=== PATIENT | female | born 1945 | race African-American/Black ===

== ENCOUNTER 2018-05-24 14:15 | Inpatient (IN) | payer OTHER ==
--- NOTE | 2018-05-24 14:48 | PDOC ---
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 The patient is accompanied by her daughter who assists in providing the history. The patient reports that she tripped over an ironing board and fell onto her left knee 2 days ago with pain to the left knee. She states that she has had a knee replacement performed on that knee many years ago. She states that she had been unable to bend that knee or bear weight on the leg since the fall 2 days ago. The patient's daughter returned home and found her on the floor having been unable to get up over the past 2 days. The patient denies LOC, head trauma , other injuries and otherwise denies fevers, chills, SOB, chest pain, nausea, vomiting, abdominal pain, or changes with urination or bowel movements. Past History - Past Medical History Allergies/Adverse Reactions: Allergies Allergy/AdvReac Type Severity Reaction Status Date / Time No Known Allergies Allergy Verified 05/24/18 14:45 Home Medications: Ambulatory Orders Amlodipine Besylate [Norvasc -] mg PO DAILY 05/24/18 Levothyroxine [Synthroid -] mcg PO DAILY 05/24/18 Rivaroxaban [Xarelto -] 20 mg PO DAILY 05/24/18 - Suicide/Smoking/Psychosocial Hx Smoking History: Unknown if ever smoked Review of Systems - Review of Systems Comments:: 05/24/18 15:07 Constitutional: No fevers, chills, fatigue, malaise HEENT: No Rhinorrhea, nasal congestion, visual changes Cardiovascular: No chest pain, syncope, palpitations, lightheadedness Respiratory: No Cough, SOB, Hemoptysis, Gastrointestinal: No Abdominal pain, Nausea, Vomiting, Constipation, Diarrhea, Melena Genitourinary: No Dysuria, Frequency, Urgency, Hesitancy, Hematuria, Flank pain Musculoskeletal: Left knee pain. No Myalgia, arthralgia Skin: Left knee bruising. No rashes, itching, pallor Neurologic: No Headache, Dizziness, Numbness, Weakness, or Tingling Psychiatric: No Hallucinations. No SI or HI *Physical Exam - Vital Signs Last Vital Signs Temp Pulse Resp BP Pulse Ox 98.2 F 102 H 18 113/70 97 05/24/18 14:46 05/24/18 14:46 05/24/18 14:46 05/24/18 14:46 05/24/18 14:46 - Physical Exam Comments: 05/24/18 15:07 General Appearance: Nourished. No Apparent Distress HEENT: EOMI, GIANFRANCO. No Pharyngeal Erythema, Tonsillar Exudate, Tonsillar Erythema Neck: No Cervical Lymphadenopathy Respiratory/Chest: Lungs Clear, Normal Breath Sounds. No Crackles, Rales, Rhonchi, Wheezing Cardiovascular: Regular Rhythm, Regular Rate. No Murmur, Gallops, Rubs Gastrointestinal/Abdominal: Normal Bowel Sounds, Soft. No Guarding, Rebound, Tenderness Musculoskeletal: No CVA Tenderness Extremity: Bruising noted over the left patella with limited ROM secondary to pain. No pain with log roll. Left leg is shortened and eternally rotated. Sensation to light touch and temp intact distally. 2+ dp pulses bilaterally. Normal Capillary Refill Integumentary: Normal Color, Dry, Warm Neurologic: utility sales representative II-XII NML intact, Fully Oriented, Alert, Normal Mood/Affect, Normal Response, Moderate Sedation - Procedure Monitoring Vital Signs: Procedure Monitoring Vital Signs Temperature 98.2 F 05/24/18 14:46 Pulse Rate 102 H 05/24/18 14:46 Respiratory Rate 18 05/24/18 14:46 Blood Pressure 113/70 05/24/18 14:46 O2 Sat by Pulse Oximetry (%) 97 05/24/18 14:46 ED Treatment Course - LABORATORY CBC & Chemistry Diagram: 05/24/18 15:11 05/24/18 15:11 Medical Decision Making - Medical Decision Making 05/24/18 15:09 The patient is a 72 year old female with a history of HTN, Hypothyroid, 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 Differential includes but is not limited to: Fracture, dislocation, contusion, ligamentous injury. Given the patient's history and physical exam, we will obtain a cbc, cmp, coags, cpk, plain films of the left hip and knee to evaluate further. We will treat with tylenol and continue to monitor and reassess while here in the ED. 05/24/18 18:06 CBC, cmp, caogs are unremarkable. CPK is elevated to 1500s. Plain films demonstrate a distal markedly displaced left femur fracture. We treated the patient with morphine and iv fluids. We discussed the case with Dr. Solitario with Orthopedics who is aware of the case and recommends CT imaging for further evaluation prior to surgical intervention. We will obtain a lower extremity CT to evaluate further and the patient will require admission for further management. *DC/Admit/Observation/Transfer Diagnosis at time of Disposition: Femur fracture, left Qualifiers: Encounter type: initial encounter Femur location: unspecified portion of femur Fracture type: closed Fracture morphology: unspecified fracture morphology Qualified Code(s): S72.92XA - Unspecified fracture of left femur, initial encounter for closed fracture - Discharge Dispostion Condition at time of disposition: Stable Decision to Admit order: Yes - Referrals Referrals: ON STAFF,NOT [Primary Care Provider] - - Patient Instructions - Post Discharge Activity
[2018-05-24 14:49] VITALS: BMI 27.8
[2018-05-24] MEDS ORDERED: ACETAMINOPHEN 500 MG TABLET (FP) PO ONE (15:00)
--- NOTE | 2018-05-24 15:18 | PDOC ---
Attending Attestation - HPI HPI: 05/24/18 18:52 The patient is a 72 year old female with a significant past medical history of hypertension, hypothyroid , DVT/PE (on xarelto), and stage anal ca (remission) who presents to the emergency department with a left knee injury since 3 days ago. The patient reports that she was at home 2 days ago when she tripped and fell over an ironing board in her room. The patient reports that she fell to her knees and and was unable to get up. She states that she was on the floor for 2 days until her daughter came by this morning and brought her to the ED. The patient's daughter states that when she saw her mother she was seated on her bottom. The patient denies eating, drinking or using the restroom for the past 2 days. The patient reports some associates left knee pain and swelling as well as left hip pain. The patient states that she had bilateral hip replacement in the past as well as left knee replacement. The patient denies any chest pain, shortness of breath, headache, loc, dizziness, lightheadedness or head trauma. She denies any fever, chills, nausea, vomiting, diarrhea, constipation or urinary symptoms. The patient denies any other complaints. Documentation prepared by Jose Alfredo Arzola, acting as medical assisting program director for Brian Araiza MD. <Jose Alfredo Arzola - Last Filed: 05/24/18 18:52> - Resident Resident Name: Chuy Harris - ED Attending Attestation I have performed the following: I have examined & evaluated the patient, The case was reviewed & discussed with the resident, I agree w/resident's findings & plan, Exceptions are as noted - Physicial Exam PE: 05/24/18 15:38 GENERAL: The patient is awake, alert, and fully oriented, Nontoxic - in no acute distress. HEAD: Normocephalic, atraumatic. EYES: extraocular movements intact, sclera anicteric, conjunctiva clear. ENT: Normal voice, Moist mucous membranes. NECK: Normal range of motion, supple,no focal midline tenderness in cervical/ thoracic/lumbar spine, no paraspinal tenderness LUNGS: Breath sounds equal, clear to auscultation bilaterally. No wheezes, no rhonchi, no rales. HEART: Regular rate and rhythm, normal S1 and S2 without murmur, rub or gallop. ABDOMEN: Soft, nontender, normoactive bowel sounds. No guarding, no rebound. . No CVA tenderness EXTREMITIES: Normal range of motion of b/l UE, RLE, +ttp with passive ROM on L hip/femur, +diffusely swollen, ecchymotic R knee, no pain on log roll of L leg, unable to actively or passively flex/extend L knee to pain, sensation intact distally, DP pulses symmetric NEUROLOGICAL: No facial assymetry, Normal speech, moving all 4 extremities spontaneously and symmetrically (L leg limited by pain) PSYCH: Normal mood, normal affect. SKIN: Warm, Dry, normal turgor, - Medical Decision Making 05/24/18 15:12 72y F hx htn, hypothryoidism, PE on xerolto presents with L knee pain. Fell after tripping on a ironing board, unable to get up for 2 days due to the pain. she densi any head injury, loc, headache, n/v, numbnestingling/weakness, cp, sob , palpitations on exam pt has diffuse swelling of L knee pain on L hip/femur will ck labs, cpk fluids for hydration xray of knee/hip/femur tylenol for pain will reassess 05/24/18 16:53 xray cw femur fx will dw ortho labs reviewed - no signs of anemia. ck elevated 05/24/18 19:53 pts daughter rquests transfer. discussed with [facility] by resident Warner - accepted for transfer by ortho <Brian Araiza - Last Filed: 06/02/18 07:42> Heart Score/ECG Review - ECG Impressions Comment:: 05/24/18 17:52 Twelve-lead EKG was performed and reviewed by me. There is normal sinus rhythm with a normal rate. Rate [address] changes suggestive of acute ischemia <Brian Araiza - Last Filed: 06/02/18 07:42>
[2018-05-24 15:40] LABS: BASO % 0.6 % (0-2.0); EOS % 0.2 % (0-4.5); HEMATOCRIT 33.8 % (32.4-45.2); HEMOGLOBIN 11.8 GM/dL (10.7-15.3); LYMPH % 5.3 % (8-40); MCH 33.7 pg (25.7-33.7); MCHC 34.9 g/dl (32.0-36.0); MEAN CELL VOLUME 96.6 fl (80-96); MEAN PLT VOLUME 7.9 fl (7.5-11.1); MONO % 11.9 % (3.8-10.2); PLATELET COUNT 357 K/MM3 (134-434); RDW 14.5 % (11.6-15.6)
[2018-05-24 16:03] LABS: INR 1.08 (0.83-1.09); PROTHROMBIN TIME (PATIENT) 12.7 SEC (9.7-13.0)
[2018-05-24 16:06] LABS: ACTIVATED PTT 27.4 SECONDS (25.2-36.5)
[2018-05-24 16:16] LABS: ALBUMIN 3.4 g/dl (3.4-5.0); ALK PHOS 50 U/L (45-117); ANION GAP 5 MMOL/L (8-16); BILIRUBIN,TOTAL 0.7 mg/dL (0.2-1); BLOOD UREA NITROGEN 22 mg/dL (7-18); CALCIUM 9.5 mg/dL (8.5-10.1); CHLORIDE 107 mmol/L (98-107); CO2 27 mmol/L (21-32); CREATININE 0.9 mg/dL (0.55-1.3); GLUCOSE,RANDOM 131 mg/dL (74-106); POTASSIUM 4.5 mmol/L (3.5-5.1); SGOT/AST 40 U/L (15-37); SGPT/ALT 20 U/L (13-61); SODIUM 139 mmol/L (136-145); TOT PROT 6.8 g/dl (6.4-8.2)
[2018-05-24] MEDS ORDERED: SODIUM CHLORIDE 1,000 ML IV STA (16:22)
[2018-05-24] MEDS ORDERED: morphine CARPU-JECT 4 MG/1 ML DISP.SYRIN IVPUSH ONE ×2 (16:22→21:03)
[2018-05-24 17:37] LABS: URINE APPEARANCE CLEAR; URINE BILIRUBIN NEGATIVE (<2.0 mg/dL); URINE COLOR YELLOW; URINE GLUCOSE (UA) NEGATIVE (NEGATIVE); URINE KETONE TRACE (NEGATIVE); URINE LEUK ESTERASE NEGATIVE (NEGATIVE); URINE NITRITE NEGATIVE (NEGATIVE); URINE PROTEIN 1+ (NEGATIVE); URINE UROBILINOGEN NEGATIVE mg/dL (0.2-1.0)
[2018-05-24 17:41] LABS: URINE MUCUS RARE
--- NOTE | 2018-05-24 18:05 | CONSULT ---
Consult - History of Present Illness Chief Complaint: left leg pain History of Present Illness: 72y/o female with hx of left TKA and JOHN presents with pain in her left lower extremity s/p a fall two days ago at home. She was found by her family member and transported to the ED where she had x-rays and was found to have a fracture. She has pain which is worse with movement of the extremity and better with rest. She is on xaraleto but has not taken in the past 2 days. - History Source History Provided By: Patient, Medical Record - Smoking History Smoking history: Unknown if ever smoked Home Medications - Allergies Allergies/Adverse Reactions: Allergies Allergy/AdvReac Type Severity Reaction Status Date / Time No Known Allergies Allergy Verified 05/24/18 14:45 - Home Medications Home Medications: Ambulatory Orders Amlodipine Besylate [Norvasc -] mg PO DAILY 05/24/18 Levothyroxine [Synthroid -] mcg PO DAILY 05/24/18 Rivaroxaban [Xarelto -] 20 mg PO DAILY 05/24/18 Review of Systems - Review of Systems Constitutional: reports: No Symptoms Eyes: reports: No Symptoms HENT: reports: No Symptoms Neck: reports: No Symptoms Cardiovascular: reports: No Symptoms Respiratory: reports: No Symptoms Gastrointestinal: reports: No Symptoms Genitourinary: reports: No Symptoms Breasts: reports: No Symptoms Reported Musculoskeletal: reports: Extremity Pain Integumentary: reports: No Symptoms Neurological: reports: No Symptoms Endocrine: reports: No Symptoms Hematology/Lymphatic: reports: No Symptoms Psychiatric: reports: No Symptoms Physical Exam Vital Signs: Vital Signs Temperature 98.2 F 05/24/18 17:47 Pulse Rate 92 H 05/24/18 17:47 Respiratory Rate 18 05/24/18 17:47 Blood Pressure 125/74 05/24/18 17:47 O2 Sat by Pulse Oximetry (%) 98 05/24/18 17:47 Labs: CBC, BMP 05/24/18 15:11 05/24/18 15:11 Imaging - Results X-ray: Report Reviewed, Image Reviewed (left knee/hip: Displaced spiral fx of the midshaft/distal femur) Assessment/Plan #1 Left femur shaft fracture Discussed today's findings and treatment options with the patient. I have recommended ORIF and they would like to proceed. Case discussed with Dr. Solitario. Pain is for ORIF tomorrow afternoon/evening. -Hold Xarelto -Pain control -Knee immobizer placed for comfort
--- NOTE | 2018-05-24 19:40 | PDOC ---
*Physical Exam - Vital Signs Last Vital Signs Temp Pulse Resp BP Pulse Ox 98.2 F 92 H 18 125/74 98 05/24/18 17:47 05/24/18 17:47 05/24/18 17:47 05/24/18 17:47 05/24/18 17:47 05/24/18 19:50 I assumed Ms. Fontaine's care at the beginning of my shift. Patient has periprosthetic spiral distal 1/3 femur fracture, ED Treatment Course - LABORATORY CBC & Chemistry Diagram: 05/24/18 15:11 05/24/18 15:11 - ADDITIONAL ORDERS Additional order review: Laboratory Results 05/24/18 05/24/18 05/24/18 17:20 15:11 15:11 PT with INR INR PTT (Actin FS) Sodium 139 Potassium 4.5 Chloride 107 Carbon Dioxide 27 Anion Gap 5 L BUN 22 H Creatinine 0.9 Creat Clearance w eGFR > 60 Random Glucose 131 H Calcium 9.5 Total Bilirubin 0.7 AST 40 H ALT 20 Alkaline Phosphatase 50 Creatine Kinase 1503 H Creatine Kinase Index 0.3 CK-MB (CK-2) 5.2 H Total Protein 6.8 Albumin 3.4 Urine Color Yellow Urine Appearance Clear Urine pH 5.0 Ur Specific [place] 1.028 Urine Protein 1+ H Urine Glucose (UA) Negative Urine Ketones Trace H Urine Blood Negative Urine Nitrite Negative Urine Bilirubin Negative Urine Urobilinogen Negative Ur Leukocyte Esterase Negative Urine WBC (Auto) <1 Urine RBC (Auto) None Urine Mucus Rare Blood Type AB POSITIVE Antibody Screen Negative 05/24/18 15:11 PT with INR 12.70 INR 1.08 PTT (Actin FS) 27.4 Sodium Potassium Chloride Carbon Dioxide Anion Gap BUN Creatinine Creat Clearance w eGFR Random Glucose Calcium Total Bilirubin AST ALT Alkaline Phosphatase Creatine Kinase Creatine Kinase Index CK-MB (CK-2) Total Protein Albumin Urine Color Urine Appearance Urine pH Ur Specific [place] Urine Protein Urine Glucose (UA) Urine Ketones Urine Blood Urine Nitrite Urine Bilirubin Urine Urobilinogen Ur Leukocyte Esterase Urine WBC (Auto) Urine RBC (Auto) Urine Mucus Blood Type Antibody Screen 05/24/18 15:11 RBC 3.50 L MCV 96.6 H MCHC 34.9 RDW 14.5 MPV 7.9 Neutrophils % 82.0 Lymphocytes % 5.3 L Monocytes % 11.9 H Eosinophils % 0.2 Basophils % 0.6 - Medications Given in the ED: ED Medications Discontinued Medications Generic Name Dose Route Start Last Admin Trade Name Leonel PRN Reason Stop Dose Admin Acetaminophen 975 mg 05/24/18 15:00 05/24/18 15:32 Tylenol - PO 05/24/18 15:01 975 mg ONCE ONE Administration Sodium Chloride 1,000 mls @ 1,000 mls/hr 05/24/18 16:22 05/24/18 17:10 Normal Saline - IV 05/24/18 17:21 1,000 mls/hr ASDIR STA Administration Morphine Sulfate 4 mg 05/24/18 16:22 05/24/18 17:10 Morphine Injection - IVPUSH 05/24/18 16:23 4 mg ONCE ONE Administration Medical Decision Making - Medical Decision Making 05/24/18 19:45 I spoke with [facility], spoke with ED and Ortho Surgery attendings , patient accepted. Ortho surgery on-call attending is Arie Mancilla. I spoke with the family and patient regarding updated plan. 05/24/18 20:01 I spoke with ZACH Montemayor with orthopedics dept, he will let Dr. Solitario know about plan change. Patient and daughter informed and consent to transfer. Transfer paperwork completed and signed by all indicated parties. CD of imaging made and included in packet. EMS crew arrives and transfers Pt to ambulance without issue. *DC/Admit/Observation/Transfer Diagnosis at time of Disposition: Femur fracture, left Qualifiers: Encounter type: initial encounter Femur location: unspecified portion of femur Fracture type: closed Fracture morphology: unspecified fracture morphology Qualified Code(s): S72.92XA - Unspecified fracture of left femur, initial encounter for closed fracture - Discharge Dispostion Condition at time of disposition: Stable - Referrals Referrals: ON STAFF,NOT [Primary Care Provider] - - Patient Instructions - Post Discharge Activity - Transfer to Acute Care Facility Accepting Physician:: li
[2018-05-24] MEDS ORDERED: morphine SULFATE 4 MG/ML VIAL ONE (21:03)
[2018-05-24 23:21] VITALS: BP 121/76; PULSE 86; TEMP 98.7
--- NOTE | 2018-05-25 11:13 | EKG ---
Test Reason : Blood Pressure : / mmHG Vent. Rate : 092 BPM Atrial Rate : 092 BPM P-R Int : 164 ms QRS Dur : 088 ms QT Int : 378 ms P-R-T Axes : 029 013 046 degrees QTc Int : 467 ms NORMAL SINUS RHYTHM MINIMAL VOLTAGE CRITERIA FOR LVH, MAY BE NORMAL VARIANT BORDERLINE ECG NO PREVIOUS ECGS AVAILABLE Confirmed by BECKA SEYMOUR, DEBRA ([id number]) on 05/25/2018 11:13:37 AM Referred By: Confirmed By:DEBRA JOVEL MD
== END 2018-05-24 23:15 | disposition short-term general hospital (02) | DRG 534 ==
LOC: JER 14:15 → JERBED 18:28
PROVIDERS: ADMIT Internal Medicine; ATTEND Internal Medicine
DX: S72.92XA Unspecified fracture of left femur, initial encounter for closed fracture (principal); W19.XXXA Unspecified fall, initial encounter; Y93.9 Activity, unspecified; Y92.099 Unspecified place in other non-institutional residence as the place of occurrence of the external cause; Y99.9 Unspecified external cause status; I10 Essential (primary) hypertension; E03.9 Hypothyroidism, unspecified
CPT/HCPCS: 36415; 71045-TC-FY; 73523-TC-FY; 73562-TC-LT-FY; 73700-TC-RT; 80053; 81003; 81015; 82550; 82553; 85025; 85610; 85730; 86850; 86900; 86901; 87086; 93005; 93010; 99285-25; J7030

== ENCOUNTER 2020-02-16 04:57 | Day surgery (SDC) | payer OTHER ==
[2020-02-14 16:01] VITALS: BMI 31.9
[2020-02-16] MEDS ORDERED: BUPIVACAINE HCL/PF 0.25% (2.5MG/ML) 10 ML VIAL ONE (07:20)
[2020-02-16] MEDS ORDERED: BUPIVACAINE HCL/PF 0.75% 10 ML VIAL ONE (07:20)
[2020-02-16] MEDS ORDERED: DEXAMETHASONE SOD PHOSPHATE/PF 10 MG/ML SDV ONE (07:21)
[2020-02-16] MEDS ORDERED: IOHEXOL 180 MG/1 ML ML IJ ONE ×2 (09:54)
[2020-02-16] MEDS ORDERED: TRIAMCINOLONE ACET 40MG/1ML VIAL IM ONE (09:54)
[2020-02-16] MEDS ORDERED: LIDOCAINE HCL 1% PRESERVATIVE FREE - 30ML VIAL IJ ONE (09:54)
[2020-02-16] MEDS ORDERED: BUPIVACAINE HCL/PF 0.5% (5 MG/ML) 30 ML VIAL IJ ONE (09:54)
[2020-02-16 10:24] VITALS: TEMP 98
[2020-02-16 13:45] VITALS: BP 129/70; PULSE 80
--- NOTE | 2020-02-20 12:42 | PROC ---
Procedure Note Procedure: Pre procedure Diagnosis: Sacroiliac Joint Dysfunction Post Procedure Diagnosis: same Anesthesia: local Procedure Performed: Right Sacroiliac Joint Injection Under Fluoroscopic Guidance After the risks and benefits were explained, informed consent was obtained. The patient was then taken to the procedure room and positioned prone on the procedure table. Time out was performed. The region overlying the right sacroiliac joint was identified using fluoroscopy. The skin was prepped and draped in the usual sterile fashion. The skin and soft tissues were anesthetized using 2% lidocaine. Using fluoroscopic guidance, a 22 gauge 3.5 inch spinal needle was then introduced to the inferior aspect of the posterior Right sacroiliac joint. Omnipaque 180 confirmed appropriate needle placement. 1 cc .5% bupivacaine and 1 cc Kenalog was then injected. The patient tolerated the procedure well and there were no complications. The patient was taken to the post procedure recovery area in good condition. Vital signs remained stable before, during, and after the procedure. The patient was given oral and written follow-up instructions. The patient was given a follow up appointment with me in the near future. Jaime Renee DO
== END 2020-02-16 10:45 | disposition home or self-care (01) ==
LOC: JASU-SURG 04:57
PROVIDERS: ATTEND Pain Medicine Pain Medicine
PROC: 3E0U3BZ Introduction of Anesthetic Agent into Joints, Percutaneous Approach (ICD-10-PCS; 2020-02-16)
PROC: 3E0U33Z Introduction of Anti-inflammatory into Joints, Percutaneous Approach (ICD-10-PCS; principal; 2020-02-16 10:30)
DX: M53.3 Sacrococcygeal disorders, not elsewhere classified (principal); M54.5 Low back pain
CPT/HCPCS: 76000-TC-FY

== ENCOUNTER 2020-05-03 05:00 | Day surgery (SDC) | payer OTHER ==
[2020-05-02 12:24] VITALS: BMI 31.6
[~2020-05-03 05:00] MED LIST: DEXAMETHASONE SOD PHOSPHATE 10 MG/1 ML VIAL IVPUSH ONE; IOHEXOL 180 MG/1 ML ML IJ ONE; LIDOCAINE HCL 1% PRESERVATIVE FREE - 30ML VIAL IJ ONE
[2020-05-03] MEDS ORDERED: LIDOCAINE HCL/PF 1% SDV 5ML VIAL ONE (07:29)
[2020-05-03] MEDS ORDERED: IOHEXOL 180 MG/1 ML ML IJ ONE (11:58)
[2020-05-03] MEDS ORDERED: DEXAMETHASONE SOD PHOSPHATE 10 MG/1 ML VIAL IVPUSH ONE (11:58)
[2020-05-03] MEDS ORDERED: LIDOCAINE HCL 1% PRESERVATIVE FREE - 30ML VIAL IJ ONE (11:58)
[2020-05-03 12:42] VITALS: TEMP 97
[2020-05-03 15:44] VITALS: BP 140/70; PULSE 80
== END 2020-05-03 13:30 | disposition home or self-care (01) ==
LOC: JASU-SURG 05:00
PROVIDERS: ATTEND Pain Medicine Pain Medicine
PROC: 3E0R3BZ Introduction of Anesthetic Agent into Spinal Canal, Percutaneous Approach (ICD-10-PCS; 2020-05-03)
PROC: B01BYZZ Fluoroscopy of Spinal Cord using Other Contrast (ICD-10-PCS; 2020-05-03)
PROC: 3E0R33Z Introduction of Anti-inflammatory into Spinal Canal, Percutaneous Approach (ICD-10-PCS; principal; 2020-05-03 11:30)
DX: M54.16 Radiculopathy, lumbar region (principal)
CPT/HCPCS: J1100

== ENCOUNTER 2020-10-14 18:08 | Inpatient (IN) | payer OTHER ==
[2020-10-14 20:31] LABS: BASO % 0.5 % (0-2.0); EOS % 2.7 % (0-4.5); HEMATOCRIT 43.9 % (32.4-45.2); HEMOGLOBIN 15.1 GM/dL (10.7-15.3); LYMPH % 9.5 % (8-40); MCHC 34.3 g/dl (32.0-36.0); MEAN CELL VOLUME 96.1 fl (80-96); MEAN PLT VOLUME 9.3 fl (7.5-11.1); MONO % 8.9 % (3.8-10.2); NEUT % 78.4 % (42.8-82.8); PLATELET COUNT 295 K/MM3 (134-434); RBC 4.56 M/mm3 (3.60-5.2); RDW 14.1 % (11.6-15.6); WHITE BLOOD COUNT 7.7 K/mm3 (4.0-10.0)
[2020-10-14 20:38] LABS: CHLORIDE 104 mmol/L (98-107); SODIUM 139 mmol/L (136-145)
[2020-10-14 20:40] LABS: ALBUMIN 3.4 g/dl (3.4-5.0); CALCIUM 9.3 mg/dL (8.5-10.1)
[2020-10-14 20:41] LABS: ANION GAP 10 MMOL/L (8-16); BLOOD UREA NITROGEN 9.8 mg/dL (7-18); CO2 25 mmol/L (21-32); GLUCOSE,RANDOM 114 mg/dL (74-106)
[2020-10-14 20:44] LABS: CREATININE 0.9 mg/dL (0.55-1.3); SGOT/AST 124 U/L (15-37); SGPT/ALT 58 U/L (13-61)
[2020-10-14 20:45] LABS: BILIRUBIN,TOTAL 0.9 mg/dL (0.2-1); TOT PROT 7.2 g/dl (6.4-8.2)
[2020-10-14 20:46] LABS: ALK PHOS 84 U/L (45-117)
[2020-10-14 20:49] LABS: N-TERMINAL BNP 28.8 pg/ml (5-125)
[2020-10-14 21:11] LABS: INR 1.56 (0.83-1.09); PROTHROMBIN TIME (PATIENT) 18.6 SEC (9.7-13.0)
[2020-10-14 21:14] LABS: ACTIVATED PTT 33.8 SECONDS (25.2-36.5)
[2020-10-14] MEDS ORDERED: CEFTRIAXONE 1,000 MG in DEXTROSE 5%-WATER - 50 ML IVPB ONE (23:54)
[2020-10-14] MEDS ORDERED: AZITHROMYCIN IVPB 500 MG in DEXTROSE 5%-WATER - 250 ML IVPB ONE (23:56)
[2020-10-15] MEDS ORDERED: CEFTRIAXONE 1 GM/50 ML BAG ONE (00:42)
[2020-10-15] MEDS ORDERED: AZITHROMYCIN IVPB 500 MG/250 ML BAG IVPB ONE (01:43)
[2020-10-15 04:48] LABS: CALCIUM 9.1 mg/dL (8.5-10.1)
[2020-10-15 04:52] LABS: CREATININE 0.9 mg/dL (0.55-1.3)
[2020-10-15] MEDS: GABAPENTIN 100 MG CAPSULE PO SCH ×3 (06:50→21:35)
[2020-10-15 08:01] VITALS: BMI 29.4
[2020-10-15] MEDS ORDERED: POTASSIUM CHLORIDE TABS 20 MEQ TABLET.ER (FP) PO ONE (09:23)
[2020-10-15] MEDS ORDERED: cefTRIAXone SODIUM 1 GM VIAL ONE (10:37)
[2020-10-15] MEDS ORDERED: DEXTROSE 5%-WATER - 50 ML IVPB ONE (10:40)
[2020-10-15] MEDS: AZITHROMYCIN 500 MG TABLET PO SCH (10:46)
[2020-10-15] MEDS: amLODIPine BESYLATE 5 MG TABLET (FP) PO SCH (10:47)
[2020-10-15] MEDS: CEFTRIAXONE 1 GM in DEXTROSE 5%-WATER - 50 ML IVPB SCH (10:47)
[2020-10-15] MEDS: RIVAROXABAN 20 MG TABLET PO SCH (18:02)
[2020-10-16] MEDS: GABAPENTIN 100 MG CAPSULE PO SCH ×3 (06:25→21:23)
[2020-10-16] MEDS ORDERED: LEVOTHYROXINE NA 50 MCG TABLET (FP) PO SCH ×2 (07:00→11:51)
[2020-10-16 08:29] LABS: BASO % 2.6 % (0-2.0); EOS % 10.4 % (0-4.5); HEMATOCRIT 36.5 % (32.4-45.2); HEMOGLOBIN 12.6 GM/dL (10.7-15.3); LYMPH % 12.3 % (8-40); MCH 33.2 pg (25.7-33.7); MCHC 34.5 g/dl (32.0-36.0); MEAN CELL VOLUME 96.1 fl (80-96); MONO % 17.3 % (3.8-10.2); NEUT % 57.4 % (42.8-82.8); PLATELET COUNT 245 K/MM3 (134-434); RDW 13.7 % (11.6-15.6); WHITE BLOOD COUNT 3.5 K/mm3 (4.0-10.0)
[2020-10-16 08:46] LABS: CALCIUM 8.9 mg/dL (8.5-10.1)
[2020-10-16 08:47] LABS: ALBUMIN 2.7 g/dl (3.4-5.0); BLOOD UREA NITROGEN 8.3 mg/dL (7-18); MAGNESIUM 1.8 mg/dL (1.8-2.4)
[2020-10-16 08:50] LABS: CREATININE 0.7 mg/dL (0.55-1.3)
[2020-10-16 08:51] LABS: BILIRUBIN,TOTAL 0.8 mg/dL (0.2-1); TOT PROT 5.6 g/dl (6.4-8.2)
[2020-10-16] MEDS ORDERED: cefTRIAXone SODIUM 1 GM VIAL ONE (09:24)
[2020-10-16] MEDS ORDERED: DEXTROSE 5%-WATER - 50 ML IVPB ONE (09:24)
[2020-10-16] MEDS: CEFTRIAXONE 1 GM in DEXTROSE 5%-WATER - 50 ML IVPB SCH (09:35)
[2020-10-16] MEDS: AZITHROMYCIN 500 MG TABLET PO SCH (09:35)
[2020-10-16] MEDS: amLODIPine BESYLATE 5 MG TABLET (FP) PO SCH (09:36)
[2020-10-16] MEDS: RIVAROXABAN 20 MG TABLET PO SCH (17:15)
[2020-10-17] MEDS: GABAPENTIN 100 MG CAPSULE PO SCH ×3 (06:20→21:25)
[2020-10-17] MEDS: LEVOTHYROXINE NA 50 MCG TABLET (FP) PO SCH (06:20)
[2020-10-17] MEDS ORDERED: cefTRIAXone SODIUM 1 GM VIAL ONE (10:11)
[2020-10-17] MEDS ORDERED: DEXTROSE 5%-WATER - 50 ML IVPB ONE (10:12)
[2020-10-17] MEDS: CEFTRIAXONE 1 GM in DEXTROSE 5%-WATER - 50 ML IVPB SCH (11:09)
[2020-10-17] MEDS: amLODIPine BESYLATE 5 MG TABLET (FP) PO SCH (11:09)
[2020-10-17] MEDS: AZITHROMYCIN 500 MG TABLET PO SCH (11:30)
[2020-10-17] MEDS: methylPREDNISolone NA SUCC 40 MG/1 ML VIAL IVPUSH SCH ×2 (11:43→17:12)
[2020-10-17] MEDS ORDERED: ACETAMINOPHEN 325 MG TABLET (FP) PO PRN (13:41)
[2020-10-17] MEDS: RIVAROXABAN 20 MG TABLET PO SCH (17:14)
[2020-10-17] MEDS ORDERED: IBUPROFEN 200 MG TABLET PO ONE (23:53)
[2020-10-18] MEDS: methylPREDNISolone NA SUCC 40 MG/1 ML VIAL IVPUSH SCH ×2 (01:28→09:36)
[2020-10-18] MEDS: GABAPENTIN 100 MG CAPSULE PO SCH ×2 (05:38→14:15)
[2020-10-18] MEDS: LEVOTHYROXINE NA 50 MCG TABLET (FP) PO SCH (06:34)
[2020-10-18 08:18] LABS: BASO % 0.6 % (0-2.0); EOS % 0.1 % (0-4.5); HEMATOCRIT 39.8 % (32.4-45.2); HEMOGLOBIN 13.4 GM/dL (10.7-15.3); LYMPH % 4.7 % (8-40); MCH 32.6 pg (25.7-33.7); MCHC 33.8 g/dl (32.0-36.0); MEAN CELL VOLUME 96.5 fl (80-96); MEAN PLT VOLUME 9.2 fl (7.5-11.1); NEUT % 92.6 % (42.8-82.8); PLATELET COUNT 279 K/MM3 (134-434); RBC 4.12 M/mm3 (3.60-5.2); RDW 13.6 % (11.6-15.6); WHITE BLOOD COUNT 7.1 K/mm3 (4.0-10.0)
[2020-10-18 08:38] LABS: BLOOD UREA NITROGEN 11.5 mg/dL (7-18); CALCIUM 9.8 mg/dL (8.5-10.1)
[2020-10-18 08:40] LABS: CREATININE 0.8 mg/dL (0.55-1.3)
[2020-10-18] MEDS ORDERED: cefTRIAXone SODIUM 1 GM VIAL ONE (09:26)
[2020-10-18] MEDS ORDERED: DEXTROSE 5%-WATER - 50 ML IVPB ONE (09:28)
[2020-10-18] MEDS: amLODIPine BESYLATE 5 MG TABLET (FP) PO SCH (09:36)
[2020-10-18] MEDS: CEFTRIAXONE 1 GM in DEXTROSE 5%-WATER - 50 ML IVPB SCH (09:36)
[2020-10-18 10:42] VITALS: TEMP 97.7
[2020-10-18 10:50] LABS: ANISOCYTOSIS 0; MACROCYTOSIS 0; PLATELET ESTIMATE NORMAL
[2020-10-18 16:06] VITALS: BP 125/77; PULSE 82
[2020-10-19] MEDS ORDERED: predniSONE 20 MG TABLET (UD) PO SCH (10:00)
== END 2020-10-18 17:17 | disposition home or self-care (01) | DRG 205 ==
LOC: JER 18:08 → JERBED 10-15 00:28 → J6S 10-15 06:43
PROVIDERS: ADMIT Internal Medicine; ATTEND Internal Medicine
DX: J70.2 Acute drug-induced interstitial lung disorders (principal); J96.01 Acute respiratory failure with hypoxia; C21.0 Malignant neoplasm of anus, unspecified; C78.00 Secondary malignant neoplasm of unspecified lung; I10 Essential (primary) hypertension; E03.9 Hypothyroidism, unspecified; E03.2 Hypothyroidism due to medicaments and other exogenous substances; T50.995A Adverse effect of other drugs, medicaments and biological substances, initial encounter
CPT/HCPCS: 36415; 71045-TC-FY; 71275-TC; 80048; 80053; 82550; 82553; 82728; 83735; 83880; 84439; 84443; 84484; 85025; 85379; 85610; 85730; 86140; 86769; 87804; 87899; 93005; 93010; 94010; 94761; 99285-25; C9803; U0003; U0005

== ENCOUNTER 2021-03-14 04:17 | Day surgery (SDC) | payer OTHER ==
[2021-03-12 13:17] VITALS: BMI 27.3
[2021-03-14] MEDS ORDERED: DEXAMETHASONE SOD PHOSPHATE 10 MG/1 ML VIAL ONE (07:11)
[2021-03-14] MEDS ORDERED: LIDOCAINE HCL/PF 1% SDV 5ML VIAL ONE (07:14)
[2021-03-14] MEDS ORDERED: LIDOCAINE HCL 1% PRESERVATIVE FREE - 30ML VIAL IJ ONE (13:47)
[2021-03-14] MEDS ORDERED: DEXAMETHASONE SOD PHOSPHATE 10 MG/1 ML VIAL IVPUSH ONE ×2 (13:47→14:03)
[2021-03-14] MEDS ORDERED: IOHEXOL 180 MG/1 ML ML IJ ONE (13:48)
[2021-03-14 14:49] VITALS: BP 101/56; PULSE 74; TEMP 97.7
== END 2021-03-14 15:00 | disposition home or self-care (01) ==
LOC: JASU-SURG 04:17
PROVIDERS: ATTEND Pain Medicine Pain Medicine
PROC: 3E0R33Z Introduction of Anti-inflammatory into Spinal Canal, Percutaneous Approach (ICD-10-PCS; 2021-03-14)
PROC: B01BYZZ Fluoroscopy of Spinal Cord using Other Contrast (ICD-10-PCS; 2021-03-14)
PROC: 3E0R3BZ Introduction of Anesthetic Agent into Spinal Canal, Percutaneous Approach (ICD-10-PCS; principal; 2021-03-14 08:30)
DX: M54.16 Radiculopathy, lumbar region (principal)
CPT/HCPCS: 76000-TC-FY; J1100

== ENCOUNTER 2021-08-29 10:43 | Inpatient (IN) | payer OTHER ==
[2021-08-29] MEDS ORDERED: SODIUM CHLORIDE 0.9% 500 ML INFUS.BAG IV ONE (11:29)
[2021-08-29] MEDS ORDERED: ACETAMINOPHEN 1000 MG/100 ML BAG IVPB ONE (11:29)
[2021-08-29] MEDS ORDERED: ACETAMINOPHEN INJECTION 100 ML IVPB ONE (11:44)
[2021-08-29 12:18] LABS: BASO % 0.8 % (0-2.0); EOS % 0.1 % (0-4.5); HEMATOCRIT 44.3 % (32.4-45.2); LYMPH % 5.7 % (8-40); MCH 32.3 pg (25.7-33.7); MCHC 33.9 g/dl (32.0-36.0); MEAN CELL VOLUME 95.2 fl (80-96); MEAN PLT VOLUME 9.2 fl (7.5-11.1); MONO % 12.6 % (3.8-10.2); NEUT % 80.8 % (42.8-82.8); PLATELET COUNT 222 10^3/uL (134-434); RBC 4.66 M/mm3 (3.60-5.2); RDW 13.6 % (11.6-15.6); WHITE BLOOD COUNT 8.4 K/mm3 (4.0-10.0)
[2021-08-29 12:31] LABS: INR 1.12 (0.83-1.09); PROTHROMBIN TIME (PATIENT) 12.9 SEC (9.7-13.0)
[2021-08-29 12:33] LABS: ACTIVATED PTT 31.6 SECONDS (25.2-36.5); CHLORIDE 100 mmol/L (98-107); SODIUM 139 mmol/L (136-145)
[2021-08-29 12:36] LABS: CALCIUM 9.2 mg/dL (8.5-10.1)
[2021-08-29 12:37] LABS: ALBUMIN 3.5 g/dl (3.4-5.0); BLOOD UREA NITROGEN 19.3 mg/dL (7-18); GLUCOSE,RANDOM 129 mg/dL (74-106)
[2021-08-29 12:40] LABS: CHOLESTEROL 275 mg/dL (50-200); SGOT/AST 30 U/L (15-37); SGPT/ALT 24 U/L (13-61); TRIGLYCERIDES 84 mg/dL (0-150)
[2021-08-29 12:41] LABS: BILIRUBIN,TOTAL 1.4 mg/dL (0.2-1); LDL CHOLESTEROL (ONLY SJRH) 144 mg/dL (5-100); TOT PROT 7.3 g/dl (6.4-8.2)
[2021-08-29 12:42] LABS: ALK PHOS 66 U/L (45-117); HDL CHOLESTEROL 99 mg/dL (40-60)
[2021-08-29 12:51] LABS: EPI CELLS 7 /uL (0-25.1); HYALINE CASTS 9 /uL (0-3.1); PH,URINE 6.5 (5.0-8.0); URINE APPEARANCE CLEAR; URINE BACTERIA 3335 /uL (0-1359); URINE BILIRUBIN NEGATIVE (NEGATIVE); URINE COLOR DK YELLOW; URINE GLUCOSE (UA) NEGATIVE (NEGATIVE); URINE KETONE 1+ (NEGATIVE); URINE LEUK ESTERASE 1+ (NEGATIVE); URINE NITRITE NEGATIVE (NEGATIVE); URINE PROTEIN 2+ (NEGATIVE); URINE RBC 41 /uL (0-23.9); URINE WBC 418 /uL (0-25.8)
[2021-08-29] MEDS ORDERED: CEFTRIAXONE 1,000 MG in DEXTROSE 5%-WATER - 50 ML IVPB ONE (13:08)
[2021-08-29 13:09] LABS: ANION GAP 12 MMOL/L (8-16); CO2 26 mmol/L (21-32)
[2021-08-29 13:26] LABS: LACTIC ACID 2.3 mmol/L (0.4-2.0)
[2021-08-29] MEDS ORDERED: amLODIPine BESYLATE 5 MG TABLET (FP) PO ONE (13:35)
[2021-08-29] MEDS ORDERED: LOSARTAN POTASSIUM 50 MG TABLET PO ONE (13:35)
[2021-08-29] MEDS ORDERED: CEFTRIAXONE 1 GM/50 ML BAG ONE (14:03)
[2021-08-29] MEDS ORDERED: SODIUM CHLORIDE 1,000 ML IV SCH (16:00)
[2021-08-29] MEDS: SODIUM CHLORIDE 1,000 ML IV SCH (17:48)
[2021-08-29 18:28] LABS: LACTIC ACID 2.1 mmol/L (0.4-2.0)
[2021-08-29] MEDS: RIVAROXABAN 20 MG TABLET PO SCH (19:16)
[2021-08-29] MEDS: GABAPENTIN 300 MG CAPSULE PO SCH (22:57)
[2021-08-30] MEDS: SODIUM CHLORIDE 1,000 ML IV SCH ×2 (01:59→17:42)
[2021-08-30] MEDS: GABAPENTIN 300 MG CAPSULE PO SCH ×3 (06:00→21:26)
[2021-08-30] MEDS: LEVOTHYROXINE NA 100 MCG TABLET (FP) PO SCH (06:00)
[2021-08-30 09:22] LABS: HEMATOCRIT 39.7 % (32.4-45.2); HEMOGLOBIN 13.1 GM/dL (10.7-15.3); MCH 31.7 pg (25.7-33.7); MCHC 33.1 g/dl (32.0-36.0); MEAN CELL VOLUME 95.7 fl (80-96); MEAN PLT VOLUME 9.4 fl (7.5-11.1); PLATELET COUNT 197 10^3/uL (134-434); RBC 4.14 M/mm3 (3.60-5.2); RDW 13.3 % (11.6-15.6); WHITE BLOOD COUNT 5.2 K/mm3 (4.0-10.0)
[2021-08-30] MEDS ORDERED: DEXTROSE 5%-WATER - 50 ML IVPB ONE (09:27)
[2021-08-30] MEDS ORDERED: cefTRIAXone SODIUM 1 GM VIAL ONE (09:27)
[2021-08-30 09:45] LABS: BLOOD UREA NITROGEN 13.5 mg/dL (7-18); CALCIUM 8.1 mg/dL (8.5-10.1); MAGNESIUM 1.8 mg/dL (1.8-2.4)
[2021-08-30 09:49] LABS: CREATININE 0.7 mg/dL (0.55-1.3); PHOSPHOROUS 2.1 mg/dL (2.5-4.9)
[2021-08-30 09:50] LABS: BILIRUBIN,TOTAL 0.8 mg/dL (0.2-1)
[2021-08-30 09:53] LABS: ALBUMIN 2.8 g/dl (3.4-5.0)
[2021-08-30] MEDS: amLODIPine BESYLATE 10 MG TABLET (FP) PO SCH (09:57)
[2021-08-30] MEDS ORDERED: CEFTRIAXONE 1 GM in DEXTROSE 5%-WATER - 50 ML IVPB SCH (10:00)
[2021-08-30] MEDS ORDERED: POTASSIUM CHLORIDE ORAL LIQUID 20 MEQ/15 ML PO ONE ×2 (14:30→17:15)
[2021-08-30] MEDS: RIVAROXABAN 20 MG TABLET PO SCH (17:40)
[2021-08-31] MEDS: GABAPENTIN 300 MG CAPSULE PO SCH ×3 (05:23→21:17)
[2021-08-31] MEDS: LEVOTHYROXINE NA 100 MCG TABLET (FP) PO SCH (06:35)
[2021-08-31] MEDS: SODIUM CHLORIDE 1,000 ML IV SCH ×2 (06:48→17:12)
[2021-08-31] MEDS ORDERED: AMPICILLIN NA/SULBACTAM NA 1.5 GM VIAL ONE (09:13)
[2021-08-31] MEDS ORDERED: SODIUM CHLORIDE 100 ML IVPB ONE (09:14)
[2021-08-31] MEDS: amLODIPine BESYLATE 10 MG TABLET (FP) PO SCH (09:31)
[2021-08-31] MEDS ORDERED: AMPICILLIN NA/SULBACTAM NA 1.5 GM in SODIUM CHLORIDE 100 ML IVPB SCH (10:00)
[2021-08-31 13:52] VITALS: BMI 32.4
[2021-08-31 15:03] LABS: BASO % 1.6 % (0-2.0); EOS % 12.4 % (0-4.5); HEMATOCRIT 40.2 % (32.4-45.2); HEMOGLOBIN 13.8 GM/dL (10.7-15.3); LYMPH % 13.8 % (8-40); MCH 32.7 pg (25.7-33.7); MCHC 34.4 g/dl (32.0-36.0); MEAN CELL VOLUME 94.9 fl (80-96); MEAN PLT VOLUME 8.9 fl (7.5-11.1); MONO % 11.4 % (3.8-10.2); NEUT % 60.8 % (42.8-82.8); PLATELET COUNT 238 10^3/uL (134-434); RBC 4.23 M/mm3 (3.60-5.2); RDW 13.7 % (11.6-15.6); WHITE BLOOD COUNT 4.3 K/mm3 (4.0-10.0)
[2021-08-31 15:18] LABS: CALCIUM 8.5 mg/dL (8.5-10.1)
[2021-08-31 15:19] LABS: ALBUMIN 3.2 g/dl (3.4-5.0); BLOOD UREA NITROGEN 13.1 mg/dL (7-18)
[2021-08-31 15:22] LABS: PHOSPHOROUS 2.2 mg/dL (2.5-4.9)
[2021-08-31 15:24] LABS: BILIRUBIN,TOTAL 0.5 mg/dL (0.2-1); TOT PROT 6.7 g/dl (6.4-8.2)
[2021-08-31 15:40] LABS: CREATININE 0.8 mg/dL (0.55-1.3)
[2021-08-31] MEDS ORDERED: POTASSIUM PHOSPHATE 30 MM in SODIUM CHLORIDE 500 ML IVPB ONE (16:30)
[2021-08-31] MEDS: RIVAROXABAN 20 MG TABLET PO SCH (17:11)
[2021-08-31] MEDS: AMOXICILLIN 500 MG CAPSULE (FP) PO SCH (21:17)
[2021-09-01] MEDS: SODIUM CHLORIDE 1,000 ML IV SCH ×3 (03:22→19:07)
[2021-09-01] MEDS: GABAPENTIN 300 MG CAPSULE PO SCH ×3 (06:01→21:09)
[2021-09-01] MEDS: LEVOTHYROXINE NA 100 MCG TABLET (FP) PO SCH (06:02)
[2021-09-01] MEDS ORDERED: NAPH,MB-DB/K PH,MBDB POWDER PACKET PO ONE (08:15)
[2021-09-01] MEDS: AMOXICILLIN 500 MG CAPSULE (FP) PO SCH ×2 (09:44→21:09)
[2021-09-01] MEDS: amLODIPine BESYLATE 10 MG TABLET (FP) PO SCH (09:44)
[2021-09-01 10:23] LABS: BASO % 2.6 % (0-2.0); EOS % 11.3 % (0-4.5); HEMATOCRIT 39.6 % (32.4-45.2); HEMOGLOBIN 13.3 GM/dL (10.7-15.3); LYMPH % 19.2 % (8-40); MCH 32.1 pg (25.7-33.7); MCHC 33.5 g/dl (32.0-36.0); MEAN PLT VOLUME 8.8 fl (7.5-11.1); MONO % 13.1 % (3.8-10.2); NEUT % 53.8 % (42.8-82.8); PLATELET COUNT 262 10^3/uL (134-434); RBC 4.13 M/mm3 (3.60-5.2); RDW 13.6 % (11.6-15.6); WHITE BLOOD COUNT 3.6 K/mm3 (4.0-10.0)
[2021-09-01 10:54] LABS: BLOOD UREA NITROGEN 9.5 mg/dL (7-18); CALCIUM 8.4 mg/dL (8.5-10.1)
[2021-09-01 10:58] LABS: CREATININE 0.8 mg/dL (0.55-1.3); PHOSPHOROUS 2.8 mg/dL (2.5-4.9)
[2021-09-01] MEDS: RIVAROXABAN 20 MG TABLET PO SCH (17:03)
[2021-09-02] MEDS: GABAPENTIN 300 MG CAPSULE PO SCH ×2 (05:42→13:13)
[2021-09-02] MEDS: SODIUM CHLORIDE 1,000 ML IV SCH (06:00)
[2021-09-02] MEDS: LEVOTHYROXINE NA 100 MCG TABLET (FP) PO SCH (06:00)
[2021-09-02] MEDS: AMOXICILLIN 500 MG CAPSULE (FP) PO SCH (09:35)
[2021-09-02] MEDS: amLODIPine BESYLATE 10 MG TABLET (FP) PO SCH (09:40)
[2021-09-02] MEDS ORDERED: ACETAMINOPHEN 325 MG TABLET (FP) PO PRN (10:54)
[2021-09-02 15:48] VITALS: BP 136/72; PULSE 68; TEMP 97.6
== END 2021-09-02 17:10 | disposition home health service (06) | DRG 71 ==
LOC: JER 10:43 → JERBED 13:48 → J8W 22:29
PROVIDERS: ADMIT Internal Medicine; ATTEND Internal Medicine
DX: G93.41 Metabolic encephalopathy (principal); N39.0 Urinary tract infection, site not specified; I48.91 Unspecified atrial fibrillation; I10 Essential (primary) hypertension; R00.0 Tachycardia, unspecified; E03.9 Hypothyroidism, unspecified; Z96.652 Presence of left artificial knee joint; Z86.718 Personal history of other venous thrombosis and embolism; Z86.711 Personal history of pulmonary embolism; Z85.048 Personal history of other malignant neoplasm of rectum, rectosigmoid junction, and anus
CPT/HCPCS: 36415; 70450-TC; 71045-TC-FY; 72125-TC; 72170-TC-FY; 80048; 80053; 80061; 81003; 82550; 82553; 82607; 82962; 83036; 83605; 83735; 84100; 84443; 85025; 85027; 85610; 85730; 86780; 86850; 86900; 86901; 87040; 87086; 87186; 93005; 93010; 97116-GP; 97162-GP; 99285-25; C9803-CS; U0003; U0005

== ENCOUNTER 2022-02-13 04:16 | Day surgery (SDC) | payer OTHER ==
[2022-02-12 10:31] VITALS: BMI 30.8
[2022-02-13] MEDS ORDERED: BUPIVACAINE HCL/PF 0.5% (5MG/ML) 10 ML VIAL ONE (07:38)
[2022-02-13] MEDS ORDERED: LIDOCAINE HCL/PF 1% SDV 5ML VIAL ONE ×2 (07:38→14:31)
[2022-02-13] MEDS ORDERED: DEXAMETHASONE SOD PHOSPHATE 10 MG/1 ML VIAL ONE (07:38)
[2022-02-13] MEDS ORDERED: DEXMEDETOMIDINE HCL 200 MCG/2 ML IVPB ONE (14:08)
[2022-02-13] MEDS ORDERED: MIDAZOLAM HCL 2 MG/2 ML SINGLE DOSE VIAL ONE (14:13)
[2022-02-13] MEDS ORDERED: ONDANSETRON 4 MG/2 ML VIAL ONE (14:13)
[2022-02-13] MEDS ORDERED: LIDOCAINE HCL 1% PRESERVATIVE FREE - 30ML VIAL IJ ONE ×2 (14:55→15:00)
[2022-02-13] MEDS ORDERED: LIDOCAINE HCL/PF 2% SDV 5ML VIAL INF ONE ×2 (14:58→15:05)
[2022-02-13 16:45] VITALS: PULSE 63; RESP 18
[2022-02-13 17:46] VITALS: BP 137/80; TEMP 97.3
== END 2022-02-13 18:08 | disposition home or self-care (01) ==
LOC: JASU-SURG 04:16
PROVIDERS: ATTEND Pain Medicine Pain Medicine
PROC: 01HY3MZ Insertion of Neurostimulator Lead into Peripheral Nerve, Percutaneous Approach (ICD-10-PCS; principal; 2022-02-13 12:15)
DX: M96.1 Postlaminectomy syndrome, not elsewhere classified (principal)
CPT/HCPCS: 63650; C1897; 76000-TC-FY; J1100